=== PATIENT | male | born 1990 | race Caucasian/White ===

== ENCOUNTER 2021-09-05 19:37 | Emergency (ER) | payer BC, OTHER ==
[2021-09-05] MEDS ORDERED: LIDOCAINE 1% MPF 5 ML VIAL ONE (23:02)
--- NOTE | 2021-09-05 23:45 | ER ---
Nurse's Notes [facility] Name: Scott Castro Age: 30 yrs Sex: Male : 1990 Arrival Date: 09/05/2021 Time: 19:46 Bed 11 Private MD: Diagnosis: Laceration, Right Middle Finger Presentation: 09/05 20:11 Chief complaint: Patient states: Right Middle finger. Coronavirus screen: Vaccine da3 status: Patient reports receiving the 1st dose of the Covid vaccine. Ebola Screen: No symptoms or risks identified at this time. Risk Assessment: Do you want to hurt yourself or someone else? Patient reports no desire to harm self or others. 20:11 Method Of Arrival: Ambulatory da3 20:11 Acuity: RHINA 4 da3 23:32 Initial Sepsis Screen: Does the patient meet any 2 criteria? No. Patient's initial as6 sepsis screen is negative. Does the patient have a suspected source of infection? No. Patient's initial sepsis screen is negative. Onset of symptoms was September 05, 2021. Triage Assessment: 20:14 General: Appears in no apparent distress. comfortable, Behavior is calm, cooperative, da3 appropriate for age. Injury Description: Laceration sustained to Right middle finger. Historical: - Allergies: 20:14 No Known Allergies; da3 - PMHx: 20:14 Asthma; da3 - Immunization history:: Client reports receiving the Michael \T\ Michael single-dose vaccine. - Social history:: Smoking status: unknown. Screenin:32 Abuse screen: Denies threats or abuse. Nutritional screening: No deficits noted. as6 Tuberculosis screening: No symptoms or risk factors identified. Fall Risk None identified. Assessment: 23:30 General: Appears in no apparent distress. comfortable, Behavior is calm, cooperative. as6 Pain: Complains of pain in palmar aspect of distal phalanx of right index finger. Neuro: Level of Consciousness is awake, alert, obeys commands, Oriented to person, place, time, situation. Cardiovascular: Capillary refill < 3 seconds Patient's skin is warm and dry. Respiratory: Airway is patent Trachea midline Respiratory effort is even, unlabored, Respiratory pattern is regular, symmetrical. Derm: Wound noted palmar aspect of distal phalanx of right index finger Wound is laceration. Vital Signs: 20:11 BP 128 / 115; Pulse 92; Resp 18; Temp 98.5; Pulse Ox 100% on R/A; Weight 116.12 kg; da3 Height 6 ft. 1 in. (185.42 cm); 20:16 BP 106 / 92; da3 23:55 BP 133 / 83; Pulse 78; Resp 18 S; Pulse Ox 97% on R/A; as6 20:11 Body Mass Index 33.77 (116.12 kg, 185.42 cm) da3 ED Course: 19:46 Patient arrived in ED. bp1 20:14 Triage completed. da3 22:39 Roberto Carlos Bauer MD is Attending Physician. mh7 23:01 Yohan Tracy, RN is Primary Nurse. as6 23:32 Arm band placed on. as6 23:32 Bed in low position. Call light in reach. Side rails up X2. Adult w/ patient. as6 23:56 Assist provider with laceration repair on palmar aspect of distal phalanx of right as6 index finger. Patient did not have IV access during this emergency room visit. Administered Medications: 23:06 Drug: Lidocaine (1 %) 10 ml {Note: administered by provider .} Volume: 5 ml; Route: as6 Infiltration; 23:57 Follow up: Response: No adverse reaction as6 23:55 Drug: Bacitracin Ointment (500 unit/g) 1 application Route: Topical; Site: right hand; as6 23:57 Follow up: Response: No adverse reaction as6 Outcome: 23:44 Discharge ordered by . mh7 23:56 Discharged to home ambulatory, with family. as6 23:56 Condition: stable 23:56 Discharge instructions given to patient, Instructed on discharge instructions, follow up and referral plans. Demonstrated understanding of instructions, follow-up care. 23:57 Patient left the ED. as6 Signatures: Alina Miranda bp1 Roberto Carlos Bauer MD MD 7 Cristian Anthony, RN RN 3 Yohan Tracy, RAMON RN as6
--- NOTE | 2021-09-05 23:45 | EDPHYS ---
Physician Documentation [facility] Name: Scott Castro Age: 30 yrs Sex: Male : 1990 Arrival Date: 09/05/2021 Time: 19:46 Bed 11 Private MD: MIKE Physician Roberto Carlos Bauer HPI: 09/05 22:55 This 30 yrs old Male presents to ER via Ambulatory with complaints of Laceration, - mh7 Finger. 22:55 The patient or guardian reports injury. The complaints affect the Right middle finger. mh7 Context: The problem was sustained at home, resulted from a penetrating injury, by a knife, While washing dishes. Onset: The symptoms/episode began/occurred today, at 19:00. Modifying factors: The symptoms are alleviated by nothing, the symptoms are aggravated by nothing. Associated signs and symptoms: Pertinent negatives: cyanosis distally, decreased sensation distally, fever, nausea, numbness distally, tingling distally, vomiting. Severity of symptoms: At their worst the symptoms were mild, earlier today, in the emergency department the symptoms are unchanged. Historical: - Allergies: 20:14 No Known Allergies; da3 - PMHx: 20:14 Asthma; da3 - Immunization history:: Client reports receiving the Michael \T\ Michael single-dose vaccine. - Social history:: Smoking status: unknown. ROS: 22:55 Constitutional: Negative for fever, chills, and weight loss, Eyes: Negative for injury, mh7 pain, redness, and discharge, ENT: Negative for injury, pain, and discharge, Neck: Negative for injury, pain, and swelling, Cardiovascular: Negative for chest pain, palpitations, and edema, Respiratory: Negative for shortness of breath, cough, wheezing, and pleuritic chest pain, Abdomen/GI: Negative for abdominal pain, nausea, vomiting, diarrhea, and constipation, Back: Negative for injury and pain, : Negative for injury, bleeding, discharge, and swelling, Neuro: Negative for headache, weakness, numbness, tingling, and seizure, Psych: Negative for depression, anxiety, suicide ideation, homicidal ideation, and hallucinations, Allergy/Immunology: Negative for hives, rash, and allergies, Endocrine: Negative for neck swelling, polydipsia, polyuria, polyphagia, and marked weight changes. Exam: 22:55 Constitutional: This is a well developed, well nourished patient who is awake, alert, mh7 and in no acute distress. Head/Face: Normocephalic, atraumatic. 22:55 Neuro: Awake and alert, GCS 15, oriented to person, place, time, and situation. Cranial nerves II-XII grossly intact. Motor strength 5/5 in all extremities. Sensory grossly intact. Cerebellar exam normal. Normal gait. Psych: Awake, alert, with orientation to person, place and time. Behavior, mood, and affect are within normal limits. 22:55 Skin: injury, laceration(s), the wound is approximately 2.5 cm(s), with a depth of mh7 0.2 cm(s), of the palmar aspect of distal phalanx of right index finger, that can be described as clean, no foreign body, linear, without bleeding. 22:55 Musculoskeletal/extremity: Extremities: noted in the palmar aspect of distal phalanx of mh7 right index finger: laceration, ROM: intact in all extremities, Circulation is intact in all extremities. Sensation intact. Compartment Syndrome exam of affected extremity: is normal. no numbness, no tingling, no sensation deficit, no palor, no weak pulses, Joints: All joints appear normal with full range of motion. Weight bearing: able to fully bear weight, without difficulty, Tendon exam: specific tendon testing normal through active and passive range of motion Vital Signs: 20:11 BP 128 / 115; Pulse 92; Resp 18; Temp 98.5; Pulse Ox 100% on R/A; Weight 116.12 kg; da3 Height 6 ft. 1 in. (185.42 cm); 20:16 BP 106 / 92; da3 23:55 BP 133 / 83; Pulse 78; Resp 18 S; Pulse Ox 97% on R/A; as6 20:11 Body Mass Index 33.77 (116.12 kg, 185.42 cm) da3 Laceration: 23:40 Wound Repair of 2.5cm ( 1.0in ) subcutaneous laceration to palmar aspect of distal mh7 phalanx of right index finger. Distal neuro/vascular/tendon intact. Anesthesia: Digital block administered with 4 mls of 1% lidocaine. Wound prep: Extensive cleansing with hibiclenz by tn, Wound irrigation with saline by me, Copious irrigation. Skin closed with 5 4-0 Prolene using simple sutures and sterile technique. Dressed with Bacitracin. Patient tolerated well. MDM: 23:41 Differential diagnosis: contusion, abrasion, Laceration. Data reviewed: vital signs, 7 nurses notes. Data interpreted: Pulse oximetry: on room air is 100 %. Interpretation: normal. Counseling: I had a detailed discussion with the patient and/or guardian regarding: the historical points, exam findings, and any diagnostic results supporting the discharge/admit diagnosis, the need for outpatient follow up, to return to the emergency department if symptoms worsen or persist or if there are any questions or concerns that arise at home. Response to treatment: the patient's symptoms have markedly improved after treatment. 23:44 Patient medically screened. [facility] 09/05 22:54 Order name: Suture Tray Setup; Complete Time: 23:06 7 Administered Medications: 23:06 Drug: Lidocaine (1 %) 10 ml {Note: administered by provider .} Volume: 5 ml; Route: as6 Infiltration; 23:57 Follow up: Response: No adverse reaction as6 23:55 Drug: Bacitracin Ointment (500 unit/g) 1 application Route: Topical; Site: right hand; as6 23:57 Follow up: Response: No adverse reaction as6 Disposition Summary: 09/05/21 23:44 Discharge Ordered Location: Home [facility] Problem: new [facility] Symptoms: have improved [facility] Condition: Stable [facility] Diagnosis - Laceration, Right Middle Finger 7 Followup: 7 - With: Private Physician - When: 48 Hours - Reason: Wound Recheck, Worsening of condition, Recheck today's complaints Followup: 7 - With: Emergency Department - When: 48 Hours - Reason: Wound Recheck, Worsening of condition, Recheck today's complaints Discharge Instructions: - Discharge Summary Sheet 7 - Laceration Care, Adult, [id number] [facility] Forms: - Medication Reconciliation Form 7 - Thank You Letter 7 - Antibiotic Education [facility] - Prescription Opioid Use [facility] Signatures: Roberto Carlos Bauer MD MD 7 Cristian Anthony, RN RN da3 Yohan Tracy RN RN as6
[2021-09-05] MEDS ORDERED: MUPIROCIN 2% OINT 22GM TUBE TOP ONE (23:48)
[2021-09-06 00:19] VITALS: TEMP 98.5
[2021-09-06 00:22] VITALS: BP 133/83; O2SAT 97
== END 2021-09-05 23:57 | disposition home or self-care (01) ==
LOC: ER 19:37
PROC: 0JQJ0ZZ Repair Right Hand Subcutaneous Tissue and Fascia, Open Approach (ICD-10-PCS; principal; 2021-09-05)
DX: S61.212A Laceration without foreign body of right middle finger without damage to nail, initial encounter (principal); W26.0XXA Contact with knife, initial encounter; Y93.G1 Activity, food preparation and clean up; Y92.000 Kitchen of unspecified non-institutional (private) residence as the place of occurrence of the external cause
CPT/HCPCS: 99283

== ENCOUNTER 2024-12-11 08:36 | Day surgery (SDC) | payer BC ==
[2024-12-11] MEDS: Ringers Lactate 1,000 ML IV ONE (09:00)
[2024-12-11] MEDS: OXYMETAZOLINE HCL 0.05% 30ML NAS ONE ×2 (09:10→12:00)
[2024-12-11] MEDS ORDERED: BACITRACIN OINTMENT 14 GM TUBE TOP ONE (09:40)
[2024-12-11] MEDS ORDERED: propofoL 200 MG/20 ML VIAL IV ONE ×2 (09:51→11:47)
[2024-12-11] MEDS ORDERED: ONDANSETRON 4 MG/2 ML VIAL ONE (09:51)
[2024-12-11] MEDS ORDERED: ROCURONIUM 50 MG/5 ML VIAL IV ONE ×2 (09:51→11:46)
[2024-12-11] MEDS ORDERED: dexAMETHasone 10 MG/ML VIAL ONE (09:51)
[2024-12-11] MEDS ORDERED: LIDOCAINE 2% MPF 5 ML VIAL ONE ×2 (09:51→11:46)
[2024-12-11] MEDS ORDERED: FENTANYL CITR 100 MCG/2 ML ONE (09:51)
[2024-12-11] MEDS ORDERED: MIDAZOLAM HCL 2 MG/2 ML INJ ONE ×2 (09:51→11:40)
[2024-12-11] MEDS ORDERED: NA CHLORIDE 0.9% 0 ML ONE (11:13)
[2024-12-11] MEDS ORDERED: FENTANYL CITR 250 MCG/5 ML ONE (11:39)
[2024-12-11] MEDS: LIDOCAINE HCL/EPINEPHRINE 20 ML MDV ONE (12:36)
--- NOTE | 2024-12-11 13:51 | P.OP ---
Date of Service: 12/11/24 Preoperative Diagnosis: Chronic maxillary sinusitis, chronic ethmoid sinusitis, chronic frontal sinusitis, bilateral chronic eustachian tube salpingitis and eustachian tube obstruction with chronic middle ear negative pressure Postoperative diagnosis: Same Procedure: Bilateral nasal endoscopy with dilation of the right and left eust achian tube Bilateral nasal endoscopy with bilateral maxillary antrostomy, right anterior ethmoidectomy and right frontal sinusotomy with intraoperative image guidance Surgeon: Ning Tomlinson MD Funeral Sales Manager: None Indication for procedure: Chronic persistent sinusitis and negative middle ear pressure despite maximal medical therapy. The risks, benefits, and alternatives to surgical procedure were discussed with the patient and/or family and they agreed to proceed. Surgical findings: Mild to moderate left septal deviation. Bilateral accessory maxillary ostium with acute/chronic mucopurulent fluid in the left maxillary sinus IV Fluids: Crystalloid, see anesthesia record Implants/Packing: Bilateral PosiSep Estimated Blood Loss: 50ml Complications: None Description of procedure in detail: The patient was brought to the operating room. They were placed under general anesthesia via oral endotracheal tube. The head of bed was turned 90 degrees. The nasal hairs were trimmed. The nasal cavity was examined with the nasal speculum and headlight with the following findings: There was mild to moderate left septal deviation with enlargement of the right middle turbinate. The nasal cavity was packed with Afrin-soaked pledgets in preparation for the procedure. The patient was draped in a standard fashion for nasal surgery. Based on the surgical plan and preoperative findings, intraoperative CT navigation was required. The preoperative CT scan was loaded into the [employer] device. The registration dongle was applied with adhesive to the patient's forehead. The electromagnetic device was secured to the operating room bed and evaluation to limit interference was confirmed. The registration handpiece was used to perform patient registration in accordance with component assembler's instructions including tracing over the course of the external nose and bilateral forehead and cheeks. Accuracy of the registration was confirmed with [id number] matching at the base of the columella, the radix, and the bilateral medial and lateral canthi. Accuracy was felt to be very good. A 0 degree endoscope was then used to perform a nasal endoscopy with notable findings of bilateral accessory maxillary ostium with mucopurulent fluid flowing from the left accessory ostium to the nasopharynx. Photo documentation was obtained. Using a 0 degree endoscope the Aera balloon dilation device was passed under endoscopic guidance through the right nasal cavity with visual identification of the eustachian tube opening. The tip of the balloon dilation device was slowly advanced into the nasopharyngeal portion of the eustachian tube and inflated to a pressure of 2 sukhi. There was no significant abnormality or evidence of displacement and the pressure was increased to 8 and then 10 sukhi. The balloon was held in place for 1 minute 40 seconds then deflated and judiciously and carefully removed. The left nasal cavity was narrow preventing easy passage of the scope and balloon device through the nasal cavity. Therefore the relieve a balloon was passed along the floor of the nasal cavity and inflated to a pressure of 8 sukhi to compress the nasal mucosa and provide better visualization and access to the nasopharynx. Subsequently the Aera balloon dilation device was passed under endoscopic guidance through the left nasal cavity with visual identification of the eustachian tube opening. The tip of the balloon device was slowly advanced into the nasopharyngeal portion of the eustachian tube to its full length and inflated to a pressure of 2 sukhi. There was no evidence of abnormality or significant displacement and the pressure was increased to 8 and then 10 sukhi. The balloon was held in place for 1 minute 40 seconds and then deflated and judiciously and carefully removed. There was no evidence of immediate complication from dilation of the right or left eustachian tube and the remainder of the planned surgical procedures were undertaken. A 0 degree endoscope was used to perform a nasal endoscopy and the left middle turbinate was medialized for better visualization of the middle meatus. Both the right and left uncinate process as well as the right middle turbinate were injected with a small amount of lidocaine with epinephrine. Thick mucopurulent fluid was noted from the small accessory os which was just inferior and anterior on the uncinate process. A backbiter and 90 degree Blakesley were used to remove the uncinate process taking care to connect the natural ostium to the accessory ostium. The sinus was filled with thick mucopurulent fluid which was thoroughly suctioned. A pledget was placed and the 30 degree rigid endoscope was used to perform additional investigation confirming no additional scar band or obstruction of the ostium was noted. An additional pledget was placed and subsequently removed at the conclusion of the case. A 0 degree endoscope was then used to perform procedure flare antrostomy on the right side. 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 A sickle knife and endoscopic scissors were used to divide and remove the lateral portion of the celia bullosa from the right middle turbinate. The antrostomy itself was then performed by using the backbiter and 90 degree Blakesley were then used to remove the uncinate process and tissue in order to connect to the natural os to the accessory ostium. Minimal bleeding was encountered. The precision pointer was then used to help identify areas of the ethmoid. Using the 0 and 30 degree rigid endoscopes, the anterior ethmoid bulla was entered and dissected using a curette. Bony fragments were removed using the straight and 45 and 90 degree Blakesley. Care was taken to avoid injury to the orbit. The dissection was taken back to the posterior lamella of the middle turbinate but since the posterior ethmoid cells were not significantly involved in regards to mucosal inflammation on the patient's previous CT scan, the posterior ethmoids were not dissected. The precision pointer was used in conjunction with a 70 degree rigid endoscope to identify the frontal recess. The front to back large and small giraffe [facility] eps were used to dissect and remove bony fragments. Care was taken to avoid injury to the anterior ethmoid artery. The artery was not specifically visualized but the region along the orbit where the ethmoid artery was noted on the CT scan was carefully avoided with use of the image navigation. Once the frontal recess was adequately dissected, the frontal recess and right anterior ethmoid cavity were packed with Afrin-soaked pledgets. After several minutes these were removed and the area appeared hemostatic. A PosiSep dissolvable nasal dressing was cut in half with each half placed in the right and left middle meatus respectively. Each half was thoroughly irrigated with saline to aid in expansion and improve efficacy hemostasis. At the conclusion of the procedure, all pledget counts were confirmed correct. The patient was returned to care of anesthesia for awakening extubation in the operating room which proceeded without difficulty. The patient was transported to the recovery room and will be discharged home later today in the care of their family. The patient is given written and verbal instructions regarding the importance of saline irrigations and nasal precautions.
[2024-12-11 15:11] VITALS: BP 116/81; TEMP 97.5; O2SAT 100
== END 2024-12-11 14:44 | disposition home or self-care (01) ==
LOC: OR 08:36
PROVIDERS: ATTEND Otolaryngology
PROC: 099Q8ZZ Drainage of Right Maxillary Sinus, Via Natural or Artificial Opening Endoscopic (ICD-10-PCS; 2024-12-11)
PROC: 099R8ZZ Drainage of Left Maxillary Sinus, Via Natural or Artificial Opening Endoscopic (ICD-10-PCS; 2024-12-11)
PROC: 099S8ZZ Drainage of Right Frontal Sinus, Via Natural or Artificial Opening Endoscopic (ICD-10-PCS; 2024-12-11)
PROC: 097G8ZZ Dilation of Left Eustachian Tube, Via Natural or Artificial Opening Endoscopic (ICD-10-PCS; 2024-12-11)
PROC: 097F8ZZ Dilation of Right Eustachian Tube, Via Natural or Artificial Opening Endoscopic (ICD-10-PCS; 2024-12-11)
PROC: 099U8ZZ Drainage of Right Ethmoid Sinus, Via Natural or Artificial Opening Endoscopic (ICD-10-PCS; principal; 2024-12-11 09:45)
DX: J01.01 Acute recurrent maxillary sinusitis (principal); J32.1 Chronic frontal sinusitis; J32.2 Chronic ethmoidal sinusitis; H68.023 Chronic Eustachian salpingitis, bilateral; H68.103 Unspecified obstruction of Eustachian tube, bilateral
CPT/HCPCS: 88305; 88311; 31267; 31276; 31254; 69706; J2704; J2003; J2250; J3010; J7120; J1100; J2405; J7040